=== PATIENT | male | born 1955 | race Caucasian/White ===

== ENCOUNTER 2020-11-02 09:32 | Emergency (ER) | payer BC ==
[2020-11-02 10:21] LABS: #Basophils 0.1 thou/uL (0.0-0.2); #Eosinphils 0.3 thou/uL (0.0-0.7); #Lymphocytes 1.7 thou/uL (1.20-3.40); #Monocytes 0.5 thou/uL (0.11-0.59); #Neutrophils 3.5 thou/uL (1.40-6.50); %Eosinophils 4.1 % (0.0-10.0); %Lymphocytes 28.3 % (21.0-51.0); %Monocytes 8.4 % (0.0-10.0); %Neutrophils 58.3 % (42.0-75.0); Hemoglobin 7.4 g/dL (14.0-18.0); Mean Corpuscular HGB CONC 29.4 g/dL (32.0-36.0); Mean Corpuscular Hemoglobin 17.6 pg (27.0-31.0); Mean Corpuscular Volume 59.7 fL (78.0-98.0); Mean Platelet Volume 6.2 fL (7.4-10.4); Platelet Count 285 thou/uL (130-400); RBC Distribution Width 17.9 % (11.5-14.5); White Blood Cell (WBC) Count 6.1 thou/uL (4.8-10.8)
[2020-11-02 10:25] LABS: ALT (SGPT) 11 U/L (8-55); AST (SGOT) 13 U/L (5-34); Albumin 4.1 g/dL (3.4-4.8); Alkaline Phosphatase 137 U/L (40-110); Anion Gap 12 mmol/L (10-20); BUN (Urea Nitrogen) 18 mg/dL (8.4-25.7); Bilirubin, Total 0.3 mg/dL (0.2-1.2); Calc. Creatinine Clearance 0 mL/min (70-130); Calcium 9.4 mg/dL (7.8-10.44); Carbon Dioxide 23 mmol/L (23-31); Chloride 107 mmol/L (98-107); Globulin 3.1 g/dL (2.4-3.5); Glucose 98 mg/dL (80-115); Lipase 25 U/L (8-78); Potassium 4.2 mmol/L (3.5-5.1); Protein, Total 7.2 g/dL (5.8-8.1); Sodium 138 mmol/L (136-145)
--- NOTE | 2020-11-02 10:27 | RAD ---
Exam: Chest one view HISTORY:Chest pain. Comparison: 01/10/2016 FINDINGS: Cardiac silhouette: Normal Aorta: Unremarkable Pulmonary vessels: Normal Costophrenic angles: Clear LUNGS: No masses or consolidation. Pneumothorax: None Osseous abnormalities: None IMPRESSION: No acute cardiopulmonary process.
[2020-11-02 10:55] LABS: Elliptocytes SLIGHT = 2-5 cells (100X) (0-1/hpf); Hypochromia MODERATE=16-30 cells (100X) (0-5/hpf); MDiff Complete? YES; Microcytosis MARKED = >30 cells (100X) (0-5/hpf); Ovalocytes MODERATE= 6-15 cells (100X) (0-1/hpf); Platelet Morphology Comment Appears Adequate; Polychromasia SLIGHT = 2-3 cells (100X) (0-2/hpf); Reflex for Review?? YES; Tear Drops SLIGHT = 2-5 cells (100X) (0-1/hpf)
--- NOTE | 2020-11-02 11:24 | CT ---
CT abdomen and pelvis with IV contrast HISTORY: Upper abdomen pain. COMPARISON: 01/13/2016. FINDINGS: Calcified granulomata at the lung bases consistent with healed granulomatous disease. Small bilateral renal cysts, 1.2 cm at the superior pole right kidney and 1.1 cm the inferior pole left kidney. The liver, spleen, adrenal glands, and pancreas are unremarkable. No evidence of bowel obstruction or inflammation. Appendix unremarkable. Urinary bladder intact. Degenerative changes lumbar spine. Bilateral spondylolysis with minimal spondylolisthesis at the lumb osacral junction. IMPRESSION : No acute abnormalities are demonstrated.
[2020-11-02] MEDS ORDERED: Iopamidol-370 76% 500 ML 1 ML ONE (12:09)
== END 2020-11-02 12:12 | disposition home or self-care (01) ==
LOC: ERS 09:32
DX: R10.13 Epigastric pain (principal); D64.9 Anemia, unspecified; I25.2 Old myocardial infarction; I10 Essential (primary) hypertension; F17.210 Nicotine dependence, cigarettes, uncomplicated; Z79.82 Long term (current) use of aspirin; Z79.899 Other long term (current) drug therapy
CPT/HCPCS: 71045; 74177; 80053; 83690; 84484; 85025; 85060; 93005; Q9967

== ENCOUNTER 2022-08-03 15:39 | Inpatient (IN) | payer OTHER, BC ==
[2022-08-03 16:27] LABS: #Eosinphils 0.1 thou/uL (0.0-0.7); #Lymphocytes 0.8 thou/uL (1.20-3.40); #Monocytes 0.8 thou/uL (0.11-0.59); #Neutrophils 7.8 thou/uL (1.40-6.50); %Basophils 0.2 % (0.0-1.0); %Eosinophils 0.6 % (0.0-10.0); %Lymphocytes 8.4 % (21.0-51.0); %Neutrophils 82.7 % (42.0-75.0); Hemoglobin 11.3 g/dL (14.0-18.0); Mean Corpuscular HGB CONC 33.1 g/dL (32.0-36.0); Mean Corpuscular Hemoglobin 28.8 pg (27.0-31.0); Mean Platelet Volume 7.9 fL (7.4-10.4); Platelet Count 211 thou/uL (130-400); RBC Distribution Width 11.6 % (11.5-14.5); Red Blood Cell (RBC) Count 3.93 mill/uL (4.70-6.10); White Blood Cell (WBC) Count 9.5 thou/uL (4.8-10.8)
[2022-08-03] MEDS ORDERED: Boostrix 0.5 ML (Tdap) VIAL (>/=7 yrs of age) ONE (16:49)
[2022-08-03 17:03] LABS: ALT (SGPT) 13 U/L (8-55); AST (SGOT) 18 U/L (5-34); Albumin 4.2 g/dL (3.4-4.8); Alkaline Phosphatase 113 U/L (40-110); Anion Gap 14 mmol/L (10-20); BUN (Urea Nitrogen) 29 mg/dL (8.4-25.7); Bilirubin, Total 0.8 mg/dL (0.2-1.2); Calc. Creatinine Clearance 0 mL/min (70-130); Calcium 9.8 mg/dL (7.8-10.44); Carbon Dioxide 23 mmol/L (23-31); Chloride 103 mmol/L (98-107); Estimated GFR 24; Globulin 3.2 g/dL (2.4-3.5); Glucose 99 mg/dL (80-115); Potassium 4.8 mmol/L (3.5-5.1); Protein, Total 7.4 g/dL (5.8-8.1); Sodium 135 mmol/L (136-145)
[2022-08-03 17:05] LABS: Bacteria/HPF None Seen HPF (None Seen); Bilirubin Negative (Negative); Blood, Urine Negative (Negative); Clarity Clear (Clear); Glucose, Urine (Dipstick) 500 mg/dL (Negative); Ketone, Urine Trace mg/dL (Negative); Leukocyte Negative Leu/uL (Negative); Nitrite Negative (Negative); Protein, Urine (Dipstick) 300 mg/dL (Neg-Trace); RBC/HPF 0-3 HPF (0-3); Squamous Epithelial None Seen HPF (0-3); Urobilinogen Normal mg/dL (Less than 2); WBC/HPF 0-3 HPF (0-3)
[2022-08-03] MEDS ORDERED: Acetaminophen 500 MG TAB ONE (17:50)
[2022-08-03] MEDS ORDERED: cefTRIAXone\\ROCEPHIN 2 GM VIAL ONE (18:39)
[2022-08-03] MEDS ORDERED: Morphine 4 MG/ML VIAL ONE (18:39)
[2022-08-03] MEDS ORDERED: Ondansetron PF 4 MG/2 ML Vial IVP PRN (18:50)
[2022-08-03] MEDS ORDERED: hydrALAZINE 20 MG/ML VIAL SLOW IVP PRN (18:50)
[2022-08-03] MEDS ORDERED: TETANUS, DIPHTHERIA TOX,ADULT (TDVAX) 0.5 ML VIAL IM ONE (18:50)
[2022-08-03] MEDS ORDERED: Acetaminophen 325 MG TAB PO SCH (19:00)
[2022-08-03 19:08] LABS: SARS-CoV-2 NAA Rapid Test Not Detected (NotDetected)
[2022-08-03 19:46] LABS: Troponin I 0.015 ng/mL (< 0.028)
[2022-08-03] MEDS ORDERED: Azithromycin 500 MG in Sodium Chloride 0.9% 250 ML 250 ML IVPB SCH (20:00)
[2022-08-03] MEDS ORDERED: Azithromycin 500 MG VIAL ONE (20:42)
[2022-08-03] MEDS ORDERED: Labetalol HCl 100 MG TAB PO SCH (21:30)
[2022-08-03] MEDS: Acetaminophen/Codeine 30-300mg Tablet PO SCH (23:01)
[2022-08-03] MEDS: Senokot S 8.6-50 MG TAB PO SCH (23:01)
[2022-08-03 23:21] VITALS: BMI 30.6
[2022-08-04] MEDS: Acetaminophen/Codeine 30-300mg Tablet PO SCH ×4 (00:17→18:02)
[2022-08-04 04:17] LABS: INR-International Normal Ratio 1.2; PTT 50.9 sec (22.9-36.1); Prothrombin Time 14.9 sec (12.0-14.7)
[2022-08-04 04:33] LABS: Phosphorus 4.2 mg/dL (2.3-4.7)
[2022-08-04 04:36] LABS: Anion Gap 13 mmol/L (10-20); BUN (Urea Nitrogen) 33 mg/dL (8.4-25.7); Calc. Creatinine Clearance 35 mL/min (70-130); Calcium 8.7 mg/dL (7.8-10.44); Carbon Dioxide 21 mmol/L (23-31); Chloride 108 mmol/L (98-107); Estimated GFR 24; Glucose 99 mg/dL (80-115); Magnesium 2.3 mg/dL (1.6-2.6); Potassium 4.9 mmol/L (3.5-5.1); Sodium 137 mmol/L (136-145)
[2022-08-04 04:40] LABS: #Eosinphils 0.3 thou/uL (0.0-0.7); #Lymphocytes 1.3 thou/uL (1.20-3.40); #Neutrophils 4.3 thou/uL (1.40-6.50); %Basophils 0.2 % (0.0-1.0); %Eosinophils 4.1 % (0.0-10.0); %Lymphocytes 19.2 % (21.0-51.0); %Neutrophils 62.6 % (42.0-75.0); Hemoglobin 9.9 g/dL (14.0-18.0); Mean Corpuscular HGB CONC 33.1 g/dL (32.0-36.0); Mean Corpuscular Hemoglobin 29.5 pg (27.0-31.0); Mean Corpuscular Volume 89.2 fl (78.0-98.0); Platelet Count 191 thou/uL (130-400); RBC Distribution Width 11.5 % (11.5-14.5); Red Blood Cell (RBC) Count 3.36 mill/uL (4.70-6.10); White Blood Cell (WBC) Count 6.8 thou/uL (4.8-10.8)
[2022-08-04] MEDS: Morphine 4 MG/ML VIAL SLOW IVP PRN ×3 (04:49→21:22)
[2022-08-04] MEDS ORDERED: Labetalol HCl 100 MG TAB PO SCH (09:00)
[2022-08-04] MEDS ORDERED: Famotidine 20 MG TAB PO SCH (09:00)
[2022-08-04] MEDS: Senokot S 8.6-50 MG TAB PO SCH ×2 (09:33→21:22)
[2022-08-04] MEDS: Saccharomyces boulardii 250 MG CAP PO SCH (09:33)
[2022-08-04] MEDS: Labetalol HCl 100 MG TAB PO SCH ×2 (09:33→21:22)
[2022-08-04] MEDS: Azithromycin 250 MG TAB PO SCH (09:33)
[2022-08-04] MEDS: Polyethylene Glycol 3350 17 GM Packet PO SCH (09:34)
[2022-08-04] MEDS ORDERED: CEFAZOLIN 2 GM VIAL ONE (12:02)
[2022-08-04] MEDS ORDERED: Sodium Chloride 0.9% 100 ML ONE (12:02)
[2022-08-04] MEDS ORDERED: fentaNYL Citrate/PF 100 MCG/2 ML SYRINGE ONE (12:39)
[2022-08-04] MEDS ORDERED: Dexamethasone 20 MG/5 ML VIAL ONE (12:40)
[2022-08-04] MEDS ORDERED: Rocuronium Bromide 10 MG/ML (10ML VIAL) ONE (12:40)
[2022-08-04] MEDS ORDERED: Ondansetron PF 4 MG/2 ML Vial ONE (12:40)
[2022-08-04] MEDS ORDERED: PROPOFOL 200 MG/20 ML VIAL ONE (12:40)
[2022-08-04] MEDS ORDERED: SUGAMMADEX SODIUM 200 MG/2 ML VIAL ONE (13:24)
[2022-08-04] MEDS ORDERED: FENTANYL 50 MCG/ML VIAL 50 MCG/ML VIAL ONE ×3 (14:21→14:55)
[2022-08-04] MEDS ORDERED: Promethazine HCl 25 MG/ML VIAL IM/IV PRN (14:45)
[2022-08-04] MEDS ORDERED: Ondansetron HCl/PF 4 MG/2 ML Vial IVP PRN (14:45)
[2022-08-04] MEDS ORDERED: CEFAZOLIN 2 GM in Sodium Chloride 0.9% 100 ML IVPB SCH (15:00)
[2022-08-04] MEDS ORDERED: Sodium Chloride 0.9% 1,000 ML IV SCH (17:00)
[2022-08-04] MEDS: CEFAZOLIN 2 GM in Sodium Chloride 0.9% 100 ML IVPB SCH (17:13)
[2022-08-04] MEDS: cefTRIAXone\\ROCEPHIN 1 GM in Sodium Chloride 0.9% 100 ML IVPB SCH (17:19)
[2022-08-04] MEDS: Sodium Bicarbonate 75 MEQ in Sodium Chloride 0.45% 1,000 ML IV SCH (18:01)
[2022-08-05] MEDS: Acetaminophen/Codeine 30-300mg Tablet PO SCH ×4 (00:26→21:06)
[2022-08-05] MEDS: Sodium Bicarbonate 75 MEQ in Sodium Chloride 0.45% 1,000 ML IV SCH ×3 (02:43→21:04)
[2022-08-05] MEDS: CEFAZOLIN 2 GM in Sodium Chloride 0.9% 100 ML IVPB SCH (02:46)
[2022-08-05 05:47] LABS: #Lymphocytes 0.4 thou/uL (1.20-3.40); #Monocytes 0.5 thou/uL (0.11-0.59); #Neutrophils 7.8 thou/uL (1.40-6.50); %Basophils 0.1 % (0.0-1.0); %Eosinophils 0.1 % (0.0-10.0); %Lymphocytes 4.3 % (21.0-51.0); %Monocytes 5.8 % (0.0-10.0); %Neutrophils 89.7 % (42.0-75.0); Hemoglobin 9.3 g/dL (14.0-18.0); Mean Corpuscular HGB CONC 32.1 g/dL (32.0-36.0); Mean Corpuscular Hemoglobin 28.5 pg (27.0-31.0); Mean Corpuscular Volume 88.7 fl (78.0-98.0); Mean Platelet Volume 8.2 fL (7.4-10.4); Platelet Count 202 thou/uL (130-400); RBC Distribution Width 11.4 % (11.5-14.5); Red Blood Cell (RBC) Count 3.25 mill/uL (4.70-6.10); White Blood Cell (WBC) Count 8.6 thou/uL (4.8-10.8)
[2022-08-05 06:08] LABS: Anion Gap 11 mmol/L (10-20); BUN (Urea Nitrogen) 34 mg/dL (8.4-25.7); Calc. Creatinine Clearance 33 mL/min (70-130); Calcium 8.8 mg/dL (7.8-10.44); Carbon Dioxide 25 mmol/L (23-31); Chloride 103 mmol/L (98-107); Estimated GFR 23; Glucose 159 mg/dL (80-115); Magnesium 2.5 mg/dL (1.6-2.6); Phosphorus 4.2 mg/dL (2.3-4.7); Potassium 5.2 mmol/L (3.5-5.1); Sodium 134 mmol/L (136-145)
[2022-08-05 06:09] LABS: Iron 14 ug/dL (65-175); Iron Binding Capacity, Total 216 mcg/dL (261-462)
[2022-08-05] MEDS ORDERED: Ferrous Sulfate 325 MG TAB PO SCH (08:00)
[2022-08-05 08:57] LABS: Albumin 3.8 g/dL (3.4-4.8)
[2022-08-05] MEDS: Ascorbic Acid 500 mg Chewable Tablet PO SCH ×2 (09:20→21:06)
[2022-08-05] MEDS: Heparin 5,000 UNITS/ML VIAL SC SCH ×2 (09:20→21:07)
[2022-08-05] MEDS: Senokot S 8.6-50 MG TAB PO SCH ×2 (09:20→21:06)
[2022-08-05] MEDS: Ferrous Sulfate 325 MG TAB PO SCH ×2 (09:21→21:06)
[2022-08-05] MEDS: Azithromycin 250 MG TAB PO SCH (09:21)
[2022-08-05] MEDS: Labetalol HCl 100 MG TAB PO SCH ×2 (09:21→21:04)
[2022-08-05] MEDS: Saccharomyces boulardii 250 MG CAP PO SCH (09:21)
[2022-08-05] MEDS: Polyethylene Glycol 3350 17 GM Packet PO SCH (09:25)
[2022-08-05] MEDS ORDERED: LOKELMA 5 GM PACKET PO SCH (09:30)
[2022-08-05] MEDS: Iron, Sodium Ferric Gluconate 250 MG in Sodium Chloride 0.9% 250 ML 250 ML IVPB SCH (15:33)
[2022-08-05] MEDS: cefTRIAXone\\ROCEPHIN 1 GM in Sodium Chloride 0.9% 100 ML IVPB SCH (18:24)
[2022-08-06] MEDS: Sodium Bicarbonate 75 MEQ in Sodium Chloride 0.45% 1,000 ML IV SCH ×2 (01:15→06:30)
[2022-08-06] MEDS: Acetaminophen/Codeine 30-300mg Tablet PO SCH ×3 (01:57→11:40)
[2022-08-06 05:36] LABS: #Eosinphils 0.1 thou/uL (0.0-0.7); #Monocytes 0.8 thou/uL (0.11-0.59); %Basophils 0.4 % (0.0-1.0); %Eosinophils 1.5 % (0.0-10.0); %Lymphocytes 14.3 % (21.0-51.0); %Neutrophils 72.8 % (42.0-75.0); Hemoglobin 8.7 g/dL (14.0-18.0); Mean Corpuscular HGB CONC 30.9 g/dL (32.0-36.0); Mean Corpuscular Hemoglobin 27.4 pg (27.0-31.0); Mean Corpuscular Volume 88.6 fl (78.0-98.0); Mean Platelet Volume 8.1 fL (7.4-10.4); Platelet Count 200 thou/uL (130-400); RBC Distribution Width 11.5 % (11.5-14.5); Red Blood Cell (RBC) Count 3.19 mill/uL (4.70-6.10); White Blood Cell (WBC) Count 6.9 thou/uL (4.8-10.8)
[2022-08-06 06:21] LABS: Anion Gap 12 mmol/L (10-20); BUN (Urea Nitrogen) 37 mg/dL (8.4-25.7); Calc. Creatinine Clearance 39 mL/min (70-130); Calcium 8.9 mg/dL (7.8-10.44); Carbon Dioxide 28 mmol/L (23-31); Chloride 104 mmol/L (98-107); Estimated GFR 28; Glucose 104 mg/dL (80-115); Magnesium 2.5 mg/dL (1.6-2.6); Phosphorus 4.5 mg/dL (2.3-4.7); Potassium 4.3 mmol/L (3.5-5.1); Sodium 140 mmol/L (136-145)
[2022-08-06] MEDS: Polyethylene Glycol 3350 17 GM Packet PO SCH (08:33)
[2022-08-06] MEDS: Heparin 5,000 UNITS/ML VIAL SC SCH (08:33)
[2022-08-06] MEDS: Senokot S 8.6-50 MG TAB PO SCH (08:34)
[2022-08-06] MEDS: Saccharomyces boulardii 250 MG CAP PO SCH (08:34)
[2022-08-06] MEDS: Ferrous Sulfate 325 MG TAB PO SCH (08:34)
[2022-08-06] MEDS: Labetalol HCl 100 MG TAB PO SCH (08:34)
[2022-08-06] MEDS: Azithromycin 250 MG TAB PO SCH (08:34)
[2022-08-06] MEDS: Ascorbic Acid 500 mg Chewable Tablet PO SCH (08:35)
[2022-08-06 12:11] VITALS: BP 169/76; TEMP 97.6
[2022-08-06] MEDS: Iron, Sodium Ferric Gluconate 250 MG in Sodium Chloride 0.9% 250 ML 250 ML IVPB SCH (14:19)
== END 2022-08-06 12:40 | disposition home or self-care (01) | DRG 480 ==
LOC: ERS 15:39 → 2NO 18:54 → SJJU 08-04 14:08
PROVIDERS: ADMIT Surgery; ATTEND Surgery
PROC: 0QS604Z Reposition Right Upper Femur with Internal Fixation Device, Open Approach (ICD-10-PCS; principal; 2022-08-04)
DX: S72.011A Unspecified intracapsular fracture of right femur, initial encounter for closed fracture (principal); Z23 Encounter for immunization; Z20.822 Contact with and (suspected) exposure to COVID-19; J18.9 Pneumonia, unspecified organism; J96.01 Acute respiratory failure with hypoxia; N17.9 Acute kidney failure, unspecified; E87.21 Acute metabolic acidosis; I25.10 Atherosclerotic heart disease of native coronary artery without angina pectoris; I12.9 Hypertensive chronic kidney disease with stage 1 through stage 4 chronic kidney disease, or unspecified chronic kidney disease; N18.9 Chronic kidney disease, unspecified; F17.210 Nicotine dependence, cigarettes, uncomplicated; Z96.651 Presence of right artificial knee joint; D63.1 Anemia in chronic kidney disease; I95.1 Orthostatic hypotension; E86.9 Volume depletion, unspecified; R29.6 Repeated falls; W01.0XXA Fall on same level from slipping, tripping and stumbling without subsequent striking against object, initial encounter; E87.5 Hyperkalemia; Z91.81 History of falling; Y92.002 Bathroom of unspecified non-institutional (private) residence as the place of occurrence of the external cause; Z98.890 Other specified postprocedural states; Z79.899 Other long term (current) drug therapy
CPT/HCPCS: 36415; 36416; 71045; 80048; 80053; 81003; 81015; 82040; 82550; 82728; 83540; 83550; 83735; 83880; 84100; 84145; 84484; 85025; 85610; 85730; 87070; 87205; 90471; 90715; 93005; 93306; 93880; 93970; 94640; 94760; 96361; 96365; 96375; C1713; G0390; J0456; J0696; J1100; J1644; J2270; J2405; J2704; J2916; J3010; J3490; J7050; J7620; P9045

== ENCOUNTER 2024-04-05 08:09 | Day surgery (SDC) | payer BC ==
[2024-04-05 08:32] LABS: #Basophils 0.05 10x3/uL (0.0-0.2); %Basophils 0.8 % (0.0-1.0); %Eosinophils 5.6 % (0.0-10.0); %Lymphocytes 19.9 % (21.0-51.0); %Monocytes 9.5 % (0.0-10.0); %Neutrophils 63.9 % (42.0-75.0); Hematocrit 36.5 % (42.0-52.0); Hemoglobin 12.1 g/dL (14.0-18.0); Mean Corpuscular HGB CONC 33.2 g/dL (32.0-36.0); Mean Corpuscular Hemoglobin 28.5 pg (27.0-31.0); Mean Corpuscular Volume 86.1 fL (78.0-98.0); Mean Platelet Volume 9.6 fL (7.4-10.4); Platelet Count 217 10x3/uL (130-400); RBC Distribution Width 13.2 % (11.5-14.5); Red Blood Cell (RBC) Count 4.24 mill/uL (4.70-6.10)
[2024-04-05 08:46] LABS: INR-International Normal Ratio 0.8; Prothrombin Time 11.2 sec (12.0-14.7)
[2024-04-05 08:47] LABS: PTT 37.7 sec (22.9-36.1)
[2024-04-05] MEDS ORDERED: fentaNYL 50 mcg/mL 1 mL Vial ONE (09:36)
[2024-04-05] MEDS ORDERED: Lidocaine 1% w/Epinephrine 1:100K 20 ML VIAL ONE (09:37)
[2024-04-05] MEDS ORDERED: Midazolam HCl 2 mg/2 ml Vial ONE (09:37)
== END 2024-04-05 12:45 | disposition home or self-care (01) ==
LOC: CT 08:09
PROVIDERS: ATTEND Internal Medicine Nephrology
PROC: 0T9 Urinary System, Drainage (ICD-10-PCS; principal; 2024-04-05)
DX: I12.9 Hypertensive chronic kidney disease with stage 1 through stage 4 chronic kidney disease, or unspecified chronic kidney disease (principal); N18.4 Chronic kidney disease, stage 4 (severe); R80.9 Proteinuria, unspecified; I25.2 Old myocardial infarction; K21.9 Gastro-esophageal reflux disease without esophagitis; Z79.899 Other long term (current) drug therapy
CPT/HCPCS: 36415; 50200; 77012; 85025; 85610; 85730; 88305; 88313; 88329; 88346; 88348; 88350; 99152; 99153; J2250; J3010

== ENCOUNTER 2024-10-31 16:38 | Inpatient (IN) | payer BC ==
[2024-10-31 18:15] LABS: #Basophils Less than 0.03 10x3/uL (0.0-0.2); %Basophils 0.3 % (0.0-1.0); %Eosinophils 4.6 % (0.0-10.0); %Lymphocytes 14.2 % (21.0-51.0); %Monocytes 16.3 % (0.0-10.0); %Neutrophils 64.3 % (42.0-75.0); Hematocrit 26.7 % (42.0-52.0); Hemoglobin 9.1 g/dL (14.0-18.0); Mean Corpuscular HGB CONC 34.1 g/dL (32.0-36.0); Mean Corpuscular Hemoglobin 28.4 pg (27.0-31.0); Mean Corpuscular Volume 83.4 fL (78.0-98.0); Platelet Count 190 10x3/uL (130-400); RBC Distribution Width 12.8 % (11.5-14.5)
[2024-10-31 18:28] LABS: ALT (SGPT) 11 U/L (Less than 45); AST (SGOT) 18 U/L (11-34); Albumin 3.5 g/dL (3.1-4.5); Alkaline Phosphatase 161 U/L (40-110); Anion Gap 16 mmol/L (10-20); BUN (Urea Nitrogen) 42 mg/dL (8.4-25.7); Bilirubin, Total 0.4 mg/dL (0.3-1.2); Calc. Creatinine Clearance 0 mL/min (70-130); Carbon Dioxide 23 mmol/L (23-31); Chloride 106 mmol/L (98-107); Estimated GFR 11; Globulin 3.2 g/dL (2.4-3.5); Glucose 108 mg/dL (80-115); Potassium 4.6 mmol/L (3.5-5.1); Protein, Total 6.7 g/dL (5.8-8.1); Sodium 140 mmol/L (136-145)
[2024-10-31 19:39] LABS: Bacteria/HPF None Seen HPF (None Seen); Bilirubin Negative (Negative); Blood, Urine Negative (Negative); CAUTI Indications for Culture Pelvic or flank pain; Clarity Clear (Clear); Glucose, Urine (Dipstick) Normal (Negative); Ketone, Urine Negative (Negative); Leukocyte Negative Leu/uL (Negative); Nitrite Negative (Negative); Protein, Urine (Dipstick) 200 mg/dL (Neg-Trace); RBC/HPF 0-3 HPF (0-3); Squamous Epithelial None Seen HPF (0-3); Urobilinogen Normal mg/dL (Less than 2); WBC/HPF 0-3 HPF (0-3)
[2024-10-31 19:45] LABS: Urine Culture Reflex No No
[2024-10-31] MEDS ORDERED: Furosemide 40 MG (4 mL) VIAL ONE (20:38)
[2024-10-31] MEDS ORDERED: Acetaminophen 325 MG TAB PO PRN (21:00)
[2024-10-31] MEDS ORDERED: Ondansetron ODT 4 MG TAB SL PRN (21:00)
[2024-10-31] MEDS ORDERED: Ondansetron PF 4 MG/2 ML Vial IVP PRN (21:00)
[2024-10-31 21:19] LABS: Base Excess 0.7 mEq/L (-2.0 to +3.0); Calcium, Ionized (venous) 1.07 mmol/L (1.16-1.32); Chloride (VBG) 104 mmol/L (98-106); Hematocrit-VBG 28 % (42.0-52.0); Hemoglobin (Hb) 9.6 g/dL (12.6-17.4); Potassium (VBG) 4.42 mmol/L (3.70-5.30); Sodium 140 mmol/L (133-146); pH (venous) 7.521 (7.32-7.43)
[2024-10-31] MEDS ORDERED: Nitroglycerin 0.4 MG TAB (25 Tab Bottle) SL PRN (21:34)
[2024-10-31] MEDS: Aspirin 325 MG TAB PO SCH (22:52)
[2024-10-31] MEDS: Nicotine 21 MG PATCH TD SCH (22:55)
[2024-10-31 23:18] VITALS: BMI 30.7
[2024-11-01] MEDS: Furosemide 100 MG (10 mL) VIAL SLOW IVP SCH (05:06)
[2024-11-01 05:40] LABS: #Basophils 0.03 10x3/uL (0.0-0.2); %Basophils 0.6 % (0.0-1.0); %Eosinophils 7.2 % (0.0-10.0); %Lymphocytes 17.2 % (21.0-51.0); %Monocytes 17.9 % (0.0-10.0); %Neutrophils 56.7 % (42.0-75.0); Hemoglobin 8.5 g/dL (14.0-18.0); Mean Corpuscular HGB CONC 32.7 g/dL (32.0-36.0); Mean Corpuscular Volume 85.5 fL (78.0-98.0); Mean Platelet Volume 10.1 fL (7.4-10.4); Platelet Count 183 10x3/uL (130-400); RBC Distribution Width 12.8 % (11.5-14.5); Red Blood Cell (RBC) Count 3.04 mill/uL (4.70-6.10)
[2024-11-01 06:16] LABS: Anion Gap 18 mmol/L (10-20); BUN (Urea Nitrogen) 42 mg/dL (8.4-25.7); Calc. Creatinine Clearance 18 mL/min (70-130); Calcium 8.9 mg/dL (7.8-10.44); Carbon Dioxide 25 mmol/L (23-31); Cardiac Risk 3.3 (Less than 4.5); Chloride 104 mmol/L (98-107); Cholesterol 150 mg/dl (< 200 Desired); Estimated GFR 11; Glucose 101 mg/dL (80-115); HDL Cholesterol 45 mg/dL (>60 Neg Risk); LDL Cholesterol, Calculated 83 mg/dL; Potassium 4.5 mmol/L (3.5-5.1); Sodium 142 mmol/L (136-145); Triglycerides 109 mg/dL (Less than 150)
[2024-11-01 06:19] LABS: Troponin I 0.069 ng/mL (< 0.028)
[2024-11-01] MEDS ORDERED: Epoetin (ESRD) 10,000 UNITS/ML VIAL SC SCH (10:00)
[2024-11-01] MEDS: Tamsulosin HCl 0.4 MG CAP PO SCH (10:41)
[2024-11-01] MEDS: Azithromycin 250 MG TAB PO SCH (10:41)
[2024-11-01] MEDS: cefTRIAXone\\ROCEPHIN 1 GM in Sodium Chloride 0.9% 100 ML IVPB SCH (10:41)
[2024-11-01] MEDS: Aspirin Chewable 81 MG TAB PO SCH (10:41)
[2024-11-01] MEDS: Sodium Bicarbonate Tab 325 MG TAB PO SCH (10:41)
[2024-11-01] MEDS: Labetalol HCl 100 MG TAB PO SCH ×2 (10:41→21:54)
[2024-11-01] MEDS: Heparin 5,000 UNITS/ML VIAL SC SCH (10:42)
[2024-11-01] MEDS: Ferrous Sulfate 325 MG TAB PO SCH (10:42)
[2024-11-01] MEDS: Pantoprazole 40 MG DR.TAB PO SCH (10:42)
[2024-11-01] MEDS: EPOETIN ALFA-EPBX (ESRD) 10,000 UNITS/ML VIAL SC SCH (13:32)
[2024-11-01] MEDS: Torsemide 20 MG TAB PO SCH (15:58)
[2024-11-01 19:36] LABS: Iron 20 ug/dL (65-175); Iron Binding Capacity, Total 306 mcg/dL (261-462)
[2024-11-01] MEDS ORDERED: Non-Formulary Item 1 EACH (Nifedipine [Nifedipine Er] 60 MG Tab.Er.24) PO SCH (21:00)
[2024-11-01] MEDS ORDERED: NIFEdipine XL 60 MG ER.TAB PO SCH (21:00)
[2024-11-01] MEDS: Rosuvastatin 5 MG TAB PO SCH (21:53)
[2024-11-01] MEDS: NIFEdipine XL 30 MG ER.TAB PO SCH (21:53)
[2024-11-02 04:53] LABS: Hematocrit 26.9 % (42.0-52.0); Hemoglobin 8.9 g/dL (14.0-18.0); Mean Corpuscular HGB CONC 33.1 g/dL (32.0-36.0); Mean Corpuscular Hemoglobin 27.5 pg (27.0-31.0); Mean Platelet Volume 10.1 fL (7.4-10.4); Platelet Count 190 10x3/uL (130-400); RBC Distribution Width 12.6 % (11.5-14.5); Red Blood Cell (RBC) Count 3.24 mill/uL (4.70-6.10)
[2024-11-02 05:18] LABS: Anion Gap 17 mmol/L (10-20); BUN (Urea Nitrogen) 48 mg/dL (8.4-25.7); Calc. Creatinine Clearance 16 mL/min (70-130); Calcium 8.7 mg/dL (7.8-10.44); Carbon Dioxide 25 mmol/L (23-31); Chloride 102 mmol/L (98-107); Estimated GFR 9; Glucose 98 mg/dL (80-115); Potassium 4.3 mmol/L (3.5-5.1); Sodium 140 mmol/L (136-145)
[2024-11-02] MEDS ORDERED: Torsemide 20 MG TAB PO SCH (09:00)
[2024-11-02] MEDS ORDERED: Torsemide 100 MG TAB PO SCH (09:00)
[2024-11-02 09:53] VITALS: TEMP 97.5
[2024-11-02 11:24] VITALS: BP 151/71
[2024-11-02] MEDS: Sodium Ferric Gluconate 250 MG in Sodium Chloride 0.9% 250 ML 250 ML IVPB SCH (13:32)
[2024-11-03] MEDS ORDERED: Torsemide 20 MG TAB PO SCH (09:00)
[2024-11-03] MEDS ORDERED: Torsemide 10 MG TAB PO SCH (09:00)
== END 2024-11-02 16:00 | disposition home or self-care (01) | DRG 682 ==
LOC: ERS 16:38 → MSONC 20:52
PROVIDERS: ADMIT Family Medicine; ATTEND Internal Medicine
DX: N17.9 Acute kidney failure, unspecified (principal); J18.9 Pneumonia, unspecified organism; I12.0 Hypertensive chronic kidney disease with stage 5 chronic kidney disease or end stage renal disease; E87.20 Acidosis, unspecified; N18.5 Chronic kidney disease, stage 5; D63.1 Anemia in chronic kidney disease; I1A.0 Resistant hypertension; F17.210 Nicotine dependence, cigarettes, uncomplicated
CPT/HCPCS: 36415; 71046; 71250; 80048; 80053; 80061; 81001; 82728; 82805; 83540; 83550; 83605; 83880; 84145; 84484; 85025; 85027; 87040; 87428; 93005; 93306; 96374; J0696; J1644; J1940; J2916; J7050; Q5105

== ENCOUNTER 2025-06-26 07:30 | Outpatient (CLI) | payer BC ==
[2025-06-27 14:04] LABS: Estimated GFR - POC 9.0
== END 2025-06-26 07:31 | disposition home or self-care (01) ==
LOC: SCSMRI 07:30
PROVIDERS: ATTEND Urology
DX: R97.20 Elevated prostate specific antigen [PSA] (principal)
CPT/HCPCS: 36415; 72197; 82565